=== PATIENT | male | born 1950 | race Caucasian/White ===

== ENCOUNTER 2021-03-01 10:01 | Inpatient (IN) | payer OTHER ==
--- NOTE | 2021-03-01 17:10 | R.PREADM ---
PRE-ADMISSION SCREENING FORM SCREENING DATE AND TIME 03/01/2021 11:00 (CDT) ANTICIPATED REHAB ADMISSION DATE 03/03/2021 REFERRING FACILITY [facility] REFERRAL DATE AND TIME 02/28/2021 11:03 (CDT) REFERRAL ROOM# 405 ACUTE ADMIT DATE 03/02/2021 Previous Rehabilitation(s): No. 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 Stas Escalante M.D. MR# [id number] NAME SOSA TEMPLETON ADDRESS [address] [place] [address] DATE OF 1950 AGE 71 SSN# [id number] GENDER male MARITAL STATUS PREF. LANGUAGE (IF NON-UGANDAN) [place]uan ADMIT FROM 02 - [facility] PRE-HOSPITAL LIVING SETTING 01 - Home (private home/apt. board/care, assisted living, intermediate, transitional living) HOME TYPE AND DETAILS Type of home: single family house # of levels in the residence: 1 # of steps within the residence: 0 # of steps to enter the residence: 0 PRE-HOSPITAL LIVING WITH Family/Relatives FAMILY SUPPORT Yes PRIMARY FAMILY CONTACT NAME ROBBIE TEMPLETON PRIMARY FAMILY CONTACT PHONE PRIMARY FAMILY CONTACT RELATIONSHIP PHONE PRIMARY FAMILY CONTACT ON ADM.? no IS PRIMARY FAMILY CONTACT AUTH. REP.? no 1ST EMERGENCY CONTACT ROBBIE TEMPLETON 1ST CONTACT PHONE 1ST CONTACT RELATIONSHIP PHONE 1ST CONTACT ON ADM. no IS 1ST CONTACT AUTH. REP.? no PHONE 2ND CONTACT ON ADM.? no PATIENT EMPLOYMENT STATUS Retired (for age) PATIENT EMPLOYER No Employer PAYOR INFORMATION: 1ST PAYOR NAME MEDICARE 1ST PAYOR PHONE 1ST PAYOR INJURY/ILLNESS DUE TO ACCIDENT? No ANOTHER LIBERTARIAN RESPONSIBLE? No PRIMARY REHAB/ACUTE DIAGNOSIS: POST COVID-19, Rotator cuff tear ONSET DATE 02/14/2021 REHAB IMPAIRMENT CATEGORY (JAIME): 15 Pulmonary does NOT meet 60% rule PRIMARY DIAGNOSIS-RELATED SURGERIES: N/A SUMMARY OF ACUTE HOSPITALIZATION: Pt. is a 71 yo Right-handed male. On 02/14/2021 he was admitted to [facility] with diagnosis POST COVID-19, Rotator cuff t ear. His impairment category is Pulmonary Disorders 10 - Other Pulmonary Disorders (10.9). Pre-morbidly, Pt. was independent/mod-I in Locomotion, Safety Awareness, Social Cognition, Balance, a nd Transfers Control; and he had good Transfers Control, Sphincter Control, Communication, and Self-C are. Currently, he has deficits of Locomotion, Balance, Transfers Control, Self-Care, and Endurance. Pt. is now referred to [facility] for acute in-patient rehabilitation in order to maximize patient's functional independence in activities of daily living, strength, ROM, and mobi lity. Patient has realistic goal of being discharged at assistance level 7-Ind to reside at Home with Fami ly/Relatives. PAST MEDICAL HISTORY ACUTE HYPOXIC RESPIRATORY FAILURE FAILURE HTN HLD CONSTIPATION PNA PAST SURGICAL HISTORY: APPENDECTOMY HERNIA REPAIR MEDICATION ALLERGIES: No Known Drug Allergies (NKDA) ENVIRONMENTAL ALLERGIES: - Substance Allergies None Known - Other Allergies None Known CODE STATUS: Full code WEIGHT/HEIGHT/BMI: WEIGHT 217 lbs HEIGHT 5' 11" BMI 30.3 DIET: - Diet Type Regular - Diet - Solid Texture Regular - Diet - Liquid Texture Regular - Tube Feed N/A REVIEW OF SYSTEMS: - Gen Alert and awake Lying in bed No apparent distress Oriented to: person, time, and place - Vital Signs Temperature: 97.2 F SBP/DBP: 137/86 Pulse: 50 Resp: 16 Vital signs stable, afebrile - CVS RRR VITAL SIGNS Temperature: 97.2 F SBP/DBP: 137/86 Pulse: 50 Resp: 16 Vital signs stable, afebrile MEDICATIONS/TREATMENT: Other- See attached MAR (Medication Administration Record). CURRENT SPHINCTER CONTROL: Pre-hospital bladder status: unspecified # of bladder accidents in the last 7 days prior to screenin Pre-hospital bowel status: unspecified # of bowel accidents in the last 7 days prior to screenin Last Bowel Movement Date: 03/01/2021 CURRENT LOCOMOTION STATUS: distance walked 15 feet WITH ROLLING WALKER DETAILED CURRENT FUNCTIONAL STATUS: - Bladder accident frequency: 7-Ind - No accidents in the past 7 days - Bowel accident frequency: 7-Ind - No accidents in the past 7 days - Walking score based on distance walked: 0(N/A) score based on distance walked: 1(<=50ft) - Wheelchair score based on distance traveled: 0(N/A) QI SCORES: - Self-Care A. Eating 03-Partial/moderate assistance B. Oral hygiene 03-Partial/moderate assistance C. Toileting hygiene 03-Partial/moderate assistance E. Shower/bathe self 03-Partial/moderate assistance F. Upper body dressing 03-Partial/moderate assistance G. Lower body dressing 03-Partial/moderate assistance H. Putting on/taking off footwear 88-Not attempted due to medical condition or safety concerns - Mobility A. Roll left and right 03-Partial/moderate assistance B. Sit to lying 03-Partial/moderate assistance C. Lying to sitting on side of bed 03-Partial/moderate assistance D. Sit to stand 03-Partial/moderate assistance E. Chair/zfd-ex-gbmpd transfer 03-Partial/moderate assistance F. Toilet transfer 03-Partial/moderate assistance G. Car transfer 88-Not attempted due to medical condition or safety concerns I. Walk 10 feet 03-Partial/moderate assistance J. Walk 50 feet with two turns 88-Not attempted due to medical condition or safety concerns K. Walk 150 feet 88-Not attempted due to medical condition or safety concerns L. Walking 10 feet on uneven surfaces 88-Not attempted due to medical condition or safety concerns M. 1 step (curb) 88-Not attempted due to medical condition or safety concerns N. 4 steps 88-Not attempted due to medical condition or safety concerns O. 12 steps 88-Not attempted due to medical condition or safety concerns P. Picking up object 88-Not attempted due to medical condition or safety concerns R. Wheel 50 feet with two turns 88-Not attempted due to medical condition or safety concerns S. Wheel 150 feet 88-Not attempted due to medical condition or safety concerns - Bladder and Bowel Bladder continence Bowel continence - Endurance Fair - Balance Poor - Safety Awareness Fair CURRENT FUNC. DEFICITS: Self-Care, Mobility, Endurance, Balance, and Safety Awareness CURRENT / PREVIOUS ASSISTIVE DEVICES: Rolling Walker HISTORY OF FALLS. HAS THE PATIENT HAD TWO OR MORE FALLS IN THE PAST YEAR OR ANY FALL WITH INJURY IN T HE PAST YEAR?: No PRIOR SURGERY. DID THE PATIENT HAVE MAJOR SURGERY DURING THE 100 DAYS PRIOR TO ADMISSION?: No THERAPY NOTES FROM ACUTE CARE: Attached. SPECIAL NEEDS: - Safety Concerns Skin breakdown precautions needed due to skin breakdown risk PATIENT NEEDS ACTIVE AND ONGOING THERAPEUTIC INTERVENTION OF MULTIPLE THERAPY DISCIPLINES, INCLUDING: - Dietary and Nutrition Adequate Nutrition. Nutritional Education. Nutritional Supplements. - Occupational Therapy Cognitive Retraining. Visual Perceptual Training. - Speech Therapy Cognitive Training. Expressive Language Skills. Memory Strategies. Receptive Language Skills. Speech Intelligibility Training. PATIENT NEEDS CLOSE MEDICAL SUPERVISION BY A REHABILITATION PHYSICIAN FOR: Coordination of Treatment Team PATIENT REQUIRES 24X7 REHAB NURSING FOR MEDICAL AND FUNCTIONAL MGT. OF THE FOLLOWING DEFICITS: Disease Management Medication Management Patient/Family Education Providing Safe Environment PATIENT REQUIRES INTENSIVE, COORDINATED INTERDISCIPLINARY APPROACH TO REHAB: Arranging Home Equipment/Services Discharge Planning Family Intervention/Training Health Sciences Program Coordinator/Case Management PATIENT REHAB POTENTIAL: Chasity TEMPLETON is able and expected to receive 3 hours of individualized therapy daily on at least 5 of every 7 days Chasity ROGERSALVAROMARILEE's prognosis for significant practical improvement within a reasonable period of time shanda ears Good Expected level of measurable improvement will be of a practical value to Chasity ROGERSALVAROMARILEE's functional ca pacity or adaptations to impairments Has a viable Discharge Plan Medically appropriate; condition is sufficiently stable to participate in intensive rehab program DISCHARGE PLAN: - Estimated Length of Stay (days) 11. - Consensus on plan Discharge plan has been discussed with primary caregiver. Patient/Family is in agreement with the jazzy n. Primary caregiver is in agreement with the plan. - Patient/Family Goals Return home independently. - Planned Living Setting Upon Discharge Home, to live with Family/Relatives. Transitional Living. RECOMMENDED CARE LEVEL: IRF RECOMMENDATION DETAILS: Recommended Admission to Comprehensive Rehabilitation Program to Increase Functional [place] SCREENER'S COMPLETENESS CONFIRMATION: - Screening Confirmation The patient data collection on this preadmission screening form is finished PHYSICIANS REVIEW AND ADMISSION DETERMINATION Admit - Based on my review of the Pre-Admission Screening results, in my medical judgment and experie nce, I concur with the findings and recommend admission to [facility], as this patient requires an IRF level of care. SIGNATURE PANEL: Mica Miner - [electronically] signed by Yuko Pierce on 03/01/2021 at 11:40 (CDT) Mica Miner - [electronically] signed by Thiago Leblanc PT on 03/01/2021 at 13:38 (CDT) Physician Reviewer - [electronically] signed by Dr. Stas Escalante M.D. on 03/01/2021 at 17:09 (CDT )
[2021-03-01] MEDS ORDERED: ACETAMINOPHEN 500 MG TAB PO PRN (19:59)
[2021-03-01] MEDS ORDERED: BENZONATATE 100 MG CAP PO PRN (20:03)
[2021-03-01] MEDS ORDERED: LACTULOSE 20 GM/30 ML UCUP PO PRN ×2 (20:08→21:20)
[2021-03-01] MEDS ORDERED: DOCUSATE NA 100 MG CAP PO PRN (20:09)
[2021-03-01] MEDS ORDERED: clonazePAM 0.5 MG TAB PO PRN (20:11)
[2021-03-01] MEDS ORDERED: ONDANSETRON 4 MG (ODT) TAB PO PRN (20:19)
[2021-03-01] MEDS: ATORVASTATIN 20 MG TAB PO SCH (20:43)
[2021-03-01] MEDS: ASCORBIC ACID 500 MG TABLET PO SCH (20:43)
[2021-03-02 00:38] LABS: Urine Appearance CLEAR (Clear); Urine Bilirubin NEGATIVE (Negative); Urine Blood NEGATIVE (Negative); Urine Color YELLOW (Yellow); Urine Glucose NEGATIVE (Negative); Urine Protein NEGATIVE (Negative); Urine Specific Gravity 1.025 (1.005-1.030); Urine pH 5.5 (5.0-7.0)
[2021-03-02 00:55] LABS: Urine Bacteria 20-50 /HPF (NONE SEEN); Urine Mucus 2+ /HPF (NONE SEEN); Urine RBC <5 /HPF (NONE SEEN)
[2021-03-02] MEDS ORDERED: METOPROLOL TAR 25 MG TAB PO SCH (06:00)
[2021-03-02 06:15] LABS: Absolute Lymphocytes (CBC) 1.7 K/uL (0.7-4.9); Basophils % 0.1 % (0-1.3); Hematocrit 47.1 % (39.6-49.0); Lymphocytes % 14.2 % (15.3-44.8); MPV 8.5 fL (7.6-11.3); RBC Red Blood Cell Count 5.26 M/uL (4.33-5.43)
[2021-03-02 06:20] LABS: Potassium 4.5 mmol/L (3.5-5.1); Sodium Level 138 mmol/L (136-145)
[2021-03-02 06:36] LABS: ALT/SGPT 48 U/L (12-78); AST/SGOT 17 U/L (15-37); Albumin 2.7 g/dL (3.4-5.0); Alkaline Phosphatase 77 U/L (45-117); BUN Blood Urea Nitrogen 30 mg/dL (7-18); Bicarbonate 29 mmol/L (21-32); Bilirubin Total 1.5 mg/dL (0.2-1.0); Glucose Level 108 mg/dL (74-106); Magnesium 2.2 mg/dL (1.8-2.4); Prealbumin 38.6 mg/dL (20-40); Protein, Total 5.7 g/dL (6.4-8.2)
[2021-03-02 06:38] LABS: C-Reactive Protein < 2.90 mg/L (<3.00)
[2021-03-02 06:50] LABS: Ferritin 3282.3 ng/mL (26-388)
[2021-03-02] MEDS ORDERED: BARICITINIB 2 MG TABLET PO SCH (08:00)
[2021-03-02] MEDS: ASPIRIN 81 MG CHEWABLE TABLET PO SCH (08:11)
[2021-03-02] MEDS: ASCORBIC ACID 500 MG TABLET PO SCH ×4 (08:11→19:27)
[2021-03-02] MEDS: THIAMINE HCL 100 MG TABLET PO SCH (08:12)
[2021-03-02] MEDS: FAMOTIDINE 20 MG TAB PO SCH ×2 (08:12→19:27)
[2021-03-02] MEDS: VITAMIN D 1000 UNIT TAB PO SCH (08:12)
[2021-03-02] MEDS: predniSONE 20 MG TAB PO SCH ×2 (08:12→19:27)
[2021-03-02] MEDS: FLUCONAZOLE 100 MG TAB PO SCH (08:13)
[2021-03-02] MEDS: ZINC SULFATE 220 MG CAP PO SCH (08:13)
--- NOTE | 2021-03-02 10:05 | P.RH.PN ---
Estimated Length of Stay: 14 Expected Discharge Date: 03/15/21 Vital Signs: Last Vital Signs Temp 97.0 F 03/02/21 07:04 Pulse 54 03/02/21 07:04 Resp 16 03/02/21 07:04 BP 129/86 03/02/21 07:04 Pulse Ox 93 03/02/21 07:04 Laboratory: Laboratory Last Values WBC 11.70 K/uL (4.3-10.9) H 03/02/21 05:49 RBC 5.26 M/uL (4.33-5.43) 03/02/21 05:49 Hgb 15.5 g/dL (13.6-17.9) 03/02/21 05:49 Hct 47.1 % (39.6-49.0) 03/02/21 05:49 MCV 89.5 fL (80-100) 03/02/21 05:49 MCH 29.5 pg (27.0-35.0) 03/02/21 05:49 MCHC 33.0 g/dL (32.0-36.0) 03/02/21 05:49 RDW 14.3 % (12.1-15.2) 03/02/21 05:49 Plt Count 158 K/uL (152-406) D 03/02/21 05:49 MPV 8.5 fL (7.6-11.3) 03/02/21 05:49 Neutrophils % 79.2 % (41.7-73.7) H 03/02/21 05:49 Lymphocytes % 14.2 % (15.3-44.8) L 03/02/21 05:49 Monocytes % 6.1 % (3.3-12.3) 03/02/21 05:49 Eosinophils % 0.4 % (0-4.4) 03/02/21 05:49 Basophils % 0.1 % (0-1.3) 03/02/21 05:49 Absolute Neutrophils 9.2 K/uL (1.8-8.0) H 03/02/21 05:49 Absolute Lymphocytes 1.7 K/uL (0.7-4.9) 03/02/21 05:49 Absolute Monocytes 0.7 K/uL (0.1-1.3) 03/02/21 05:49 Absolute Eosinophils 0.0 K/uL (0-0.5) 03/02/21 05:49 Absolute Basophils 0.0 K/uL (0-0.5) 03/02/21 05:49 Sodium Cancelled 03/02/21 06:00 Potassium Cancelled 03/02/21 06:00 Chloride Cancelled 03/02/21 06:00 Carbon Dioxide Cancelled 03/02/21 06:00 BUN Cancelled 03/02/21 06:00 Creatinine Cancelled 03/02/21 06:00 Estimated GFR Cancelled 03/02/21 06:00 Glucose Cancelled 03/02/21 06:00 Calcium Cancelled 03/02/21 06:00 Magnesium Cancelled 03/02/21 06:00 Ferritin 3282.3 ng/mL (26-388) H 03/02/21 05:53 Total Bilirubin 1.5 mg/dL (0.2-1.0) H 03/02/21 05:53 AST 17 U/L (15-37) 03/02/21 05:53 ALT 48 U/L (12-78) 03/02/21 05:53 Alkaline Phosphatase 77 U/L (45-117) 03/02/21 05:53 C-Reactive Protein < 2.90 mg/L (<3.00) 03/02/21 05:53 Serum Total Protein 5.7 g/dL (6.4-8.2) L 03/02/21 05:53 Albumin Cancelled 03/02/21 06:00 Globulin 3.0 g/dL (2.3-3.5) 03/02/21 05:53 Albumin/Globulin Ratio 0.9 (1.1-1.8) L 03/02/21 05:53 Prealbumin Cancelled 03/02/21 06:00 Urine Color Yellow (Yellow) 03/01/21 23:50 Urine Appearance Clear (Clear) 03/01/21 23:50 Urine pH 5.5 (5.0-7.0) 03/01/21 23:50 Ur Specific [place] 1.025 (1.005-1.030) 03/01/21 23:50 Glucose (UA)(Auto) Negative (Negative) 03/01/21 23:50 Urine Ketones Negative (Negative) 03/01/21 23:50 Urine Blood Negative (Negative) 03/01/21 23:50 Urine Nitrite Negative (Negative) 03/01/21 23:50 Urine Bilirubin Negative (Negative) 03/01/21 23:50 Urine Urobilinogen 1.0 mg/dL (0.2-1.0) 03/01/21 23:50 Ur Leukocyte Esterase Negative (Negative) 03/01/21 23:50 Urine RBC <5 /HPF (NONE SEEN) 03/01/21 23:50 Urine WBC <5 /HPF (<5) 03/01/21 23:50 Ur Squamous Epith Cells <5 /HPF (NONE SEEN) 03/01/21 23:50 Urine Bacteria 20-50 /HPF (NONE SEEN) H 03/01/21 23:50 Hyaline Casts 0-5 /LPF (NONE SEEN) 03/01/21 23:50 Urine Mucus 2+ /HPF (NONE SEEN) 03/01/21 23:50 Urine Culture Reflexed Not needed 03/01/21 23:50 Urine Total Protein Negative (Negative) 03/01/21 23:50 Weight: 217 lb Wound Present: No Closed Surgical Incision Present: No Negative Pressure Wound Therapy Present: No Physician Update: Contact guard with standing and walking. His O2 dropped to 74% on 3L of O2. He will increase incentive spirometry. He will be evaluated by occupational therapy. Labs reviewed and are stable. Summary: Patient's care plan and penitentiary goals have been reviewed and revised as necessary. Please see the Rehabilitation Signature page for all necessary signatures.
[2021-03-02] MEDS ORDERED: RIVAROXABAN 20 MG TABLET PO SCH (17:00)
--- NOTE | 2021-03-02 17:01 | R.HP ---
HISTORY AND PHYSICAL FACILITY: [facility] ENCOUNTER DATE AND TIME: 03/02/2021 16:52 (CDT) MR#: [id number] NAME SOSA TEMPLETON ADDRESS: [address] [place] [address] [place]: [place] [address] [address] PHONE: DATE OF : 1950 AGE: 71 SSN# [id number] GENDER: Male MARITAL STATUS PRE-HOSPITAL LIVING SETTING 01 - Home (private home/apt. board/care, assisted living, half-way, transitional living) PRE-HOSPITAL LIVING WITH Family/Relatives ENCOUNTER PHYSICIAN: Dr. Stas Escalante M.D. REFERRING DOCTOR: DATE OF ADMISSION: 03/01/2021 19:22 (CDT) REFERRING FACILITY [facility] HOME TYPE AND DETAILS: Type of home: single family house # of levels in the residence: 1 # of steps within the residence: 0 # of steps to enter the residence: 0 ONSET DATE: 02/14/2021 PRIMARY DIAGNOSIS-RELATED SURGERIES: N/A HISTORY OF PRESENT ILLNESS (HPI): Pt. is a 71 yo Right-handed male. On 02/14/2021 he was admitted to [facility] with diagnosis POST COVID-19, Rotator cuff t ear. His impairment category is Pulmonary Disorders 10 - Other Pulmonary Disorders (10.9). Pre-morbidly, Pt. was independent/mod-I in Locomotion, Safety Awareness, Social Cognition, Balance, a nd Transfers Control; and he had good Transfers Control, Sphincter Control, Communication, and Self-C are. Currently, he has deficits of Locomotion, Balance, Transfers Control, Self-Care, and Endurance. Pt. is now referred to [facility] for acute in-patient rehabilitation in order to maximize patient's functional independence in activities of daily living, strength, ROM, and mobi lity. Patient has realistic goal of being discharged at assistance level 7-Ind to reside at Home with Fami ly/Relatives. MEDICATION ALLERGIES: No Known Drug Allergies (NKDA) ENVIRONMENTAL ALLERGIES: - Substance Allergies None Known - Other Allergies None Known PAST MEDICAL HISTORY: ACUTE HYPOXIC RESPIRATORY FAILURE FAILURE HTN HLD CONSTIPATION PNA PAST SURGICAL HISTORY: APPENDECTOMY HERNIA REPAIR SOCIAL HISTORY: - Home Living Family/Relatives REVIEW OF SYSTEMS: - Gen No Chills Fatigue No Fever - Eyes No Double Vision No itchiness - ENMT No Difficulty Swallowing - CVS Chest Discomfort No Chest Pain No Fatigue No Weight Gain - Resp No Cough No Shortness of Breath - GI Continent No Abdominal Pain No Constipation No Diarrhea - Continent No Kidney Pain No Painful Urination No Urinary Urgency - MSK No Joint Pain Muscle Cramps Stiffness - Skin No Itching No Rash No Suspicious Lesions - Neuro Coordination Difficulty No Difficulty with Concentration No Memory Loss No Seizures Weakness - Psych No Anxiety No Depression No HIV Exposure No Persistent Infections No Seasonal Allergies - Endo No Cold/Heat Intolerance No Excessive Hunger No Excessive Thirst No Excessive Urination PHYSICAL EXAM - Gen Alert and awake Lying in bed No apparent distress Oriented to: person, time, and place - Skin No skin breakdown. Normacephalic - Eyes No abnormalities - ENMT No abnormalities - Neck No abnormalities - CVS RRR - Chest Mildly decreased breath sounds bilaterally. - Abd Soft - GI Non distended Deferred - No abnormalities - Ext No significant edema - MSK 4/5 weakness in proximal right upper extremity. - Neuro 4/5 strength right upper extremity - Psych No abnormalities VITAL SIGNS Temperature: 97.0 F SBP/DBP: 129/86 Pulse: 54 Resp: 16 NURSING: - Shower allowing shower ACTIVITIES OOB only with supervision QI SCORES: - Self-Care A. Eating 03-Partial/moderate assistance B. Oral hygiene 03-Partial/moderate assistance C. Toileting hygiene 03-Partial/moderate assistance E. Shower/bathe self 03-Partial/moderate assistance F. Upper body dressing 03-Partial/moderate assistance G. Lower body dressing 03-Partial/moderate assistance H. Putting on/taking off footwear 88-Not attempted due to medical condition or safety concerns - Mobility A. Roll left and right 03-Partial/moderate assistance B. Sit to lying 03-Partial/moderate assistance C. Lying to sitting on side of bed 03-Partial/moderate assistance D. Sit to stand 03-Partial/moderate assistance E. Chair/esl-bt-qlqon transfer 03-Partial/moderate assistance F. Toilet transfer 03-Partial/moderate assistance G. Car transfer 88-Not attempted due to medical condition or safety concerns I. Walk 10 feet 03-Partial/moderate assistance J. Walk 50 feet with two turns 88-Not attempted due to medical condition or safety concerns K. Walk 150 feet 88-Not attempted due to medical condition or safety concerns L. Walking 10 feet on uneven surfaces 88-Not attempted due to medical condition or safety concerns M. 1 step (curb) 88-Not attempted due to medical condition or safety concerns N. 4 steps 88-Not attempted due to medical condition or safety concerns O. 12 steps 88-Not attempted due to medical condition or safety concerns P. Picking up object 88-Not attempted due to medical condition or safety concerns R. Wheel 50 feet with two turns 88-Not attempted due to medical condition or safety concerns S. Wheel 150 feet 88-Not attempted due to medical condition or safety concerns - Bladder and Bowel Bladder continence Bowel continence - Endurance Fair - Balance Poor - Safety Awareness Fair CURRENT FUNC. DEFICITS: Self-Care, Mobility, Endurance, Balance, and Safety Awareness MEDICATIONS: - Other See attached MAR (Medication Administration Record) ASSESSMENT: Pt. is a 71 yo Right-handed male.On 02/14/2021 he was admitted to [facility] with diagno sis POST COVID-19, Rotator cuff tear.His impairment category is Pulmonary Disorders 10 - Other Pulmo nary Disorders (10.9).Pre-morbidly, Pt. was independent/mod-I in Locomotion, Safety Awareness, Social Cognition, Balance, and Transfers Control; and he had good Transfers Control, Sphincter Control, Com munication, and Self-Care.Currently, he has deficits of Locomotion, Balance, Transfers Control, Self- Care, and Endurance.Pt. is now referred to [facility] for acute in-patient julissa abilitation in order to maximize patient's functional independence in activities of daily living, str ength, ROM, and mobility.- Rehab Goal Patient has realistic goal of being discharged at assistance level 7-Ind to reside at Home with Fami ly/Relatives. - Physical Therapy Gait dysfunction - to improve, our physical therapists will perform initial evaluation of pt's status upon admission and devise an individualized program for Gait Training, and Wheel Chair mobility Inability to transfer - to improve, our physical therapists will perform initial evaluation of pt's s tatus upon admission and devise an individualized program for Bed mobility Need for home safety evaluation - to improve, our physical therapists will perform initial evaluation of pt's status upon admission and devise an individualized program for Home Evaluation Need in caregiver upon discharge - to improve, our physical therapists will perform initial evaluatio n of pt's status upon admission and devise an individualized program for Caregiver Training New precaution - to improve, our physical therapists will perform initial evaluation of pt's status u surendra admission and devise an individualized program for Patient precaution education Edema - to improve, our physical therapists will perform initial evaluation of pt's status upon admi ssion and devise an individualized program for Elevation Training, and Lymphedema Therapy Poor balance - to improve, our physical therapists will perform initial evaluation of pt's status upo n admission and devise an individualized program for Balance Training Poor endurance - to improve, our physical therapists will perform initial evaluation of pt's status u surendra admission and devise an individualized program for Endurance Training Weakness - to improve, our physical therapists will perform initial evaluation of pt's status upon ad mission and devise an individualized program for Aquatic Therapy, Neuromuscular Reeducation, and Stre ngthening Achieving independence - to improve, our physical therapists will perform initial evaluation of pt's status upon admission and devise an individualized program for Community Reintegration Activities - Occupational Therapy ADL deficits - to improve, our occupation therapists will perform initial evaluation of pt's status u surendra admission and devise an individualized program for Bathing, Bed mobility, Community Reintegration , Cooking, Dressing, Eating, Fine Motor Skills, Grooming, Homemaking, Kitchen Mobility, Laundry, Lynda ent Education, Safety Awareness, Splinting - Positioning, Transfers(Toilet, Tub, Shower), and Wheel C hair Management Need for palliative care nurse - to improve, our occupation therapists will perform initial evaluation of pt's s tatus upon admission and devise an individualized program for Caregiver Training Weakness - to improve, our occupation therapists will perform initial evaluation of pt's status upon admission and devise an individualized program for Aquatic Therapy, Balance, Endurance, UE ROM, and U E strengthening MEDICAL PLAN: - Diet Type Start Regular - Diet - Liquid Texture Start Regular - Tube Feed Start N/A - Other See attached MAR (Medication Administration Record) - Diet - Solid Texture Regular - Shower shower DISCHARGE PLAN: - Estimated Length of Stay (days) 11. - Consensus on plan Discharge plan has been discussed with primary caregiver. Patient/Family is in agreement with the jazzy n. Primary caregiver is in agreement with the plan. - Patient/Family Goals Return home independently. - Planned Living Setting Upon Discharge Home, to live with Family/Relatives. Transitional Living. SIGNATURE PANEL: (CDT)
--- NOTE | 2021-03-02 17:02 | PAPE ---
POST ADMISSION PHYSICIAN EVALUATION PATIENT: [facility] MR# [id number] REFERRING DOCTOR EVALUATION DATE AND TIME 03/02/2021 17:01 (CDT) NAME SOSA TEMPLETON DATE OF 1950 AGE 71 PHONE N# [id number] GENDER male EVALUATING PHYSICIAN Dr. Stas Escalante M.D. ADMISSION DIAGNOSIS: POST COVID-19, Rotator cuff tear ONSET DATE 02/14/2021 POST-ADMISSION FUNCTIONAL/MEDICAL STATUS: - Bladder Same accident frequency: 7-Ind - No accidents in the past 7 days - Bowel Same accident frequency: 7-Ind - No accidents in the past 7 days - Walking Same score based on distance walked: 0(N/A) Same score based on distance walked: 1(<=50ft) - Wheelchair Same score based on distance traveled: 0(N/A) STATUS CHANGE EVALUATION: No change in Functional or Medical Status is identified compared with Pre-Admission screening. PATIENT NEEDS CLOSE MEDICAL SUPERVISION BY A REHABILITATION PHYSICIAN FOR: Coordination of Treatment Team PATIENT REQUIRES 24X7 REHAB NURSING FOR MEDICAL AND FUNCTIONAL MGT. OF THE FOLLOWING DEFICITS: Disease Management Medication Management Patient/Family Education Providing Safe Environment PATIENT REQUIRES INTENSIVE, COORDINATED INTERDISCIPLINARY APPROACH TO REHAB: Arranging Home Equipment/Services Discharge Planning Family Intervention/Training Kiln Placer/Case Management LIST OF IDENTIFIED AND POTENTIAL PROBLEMS: Alteration in leisure activities Bladder, Incontinence Bowel, Incontinence Infection, Actual or Potential Mobility Impaired Pain, Alteration in Comfort Self Care Deficit Skin Integrity, Actual or Potential Urinary Tract Infection (UTI), Actual or Potential PATIENT COULD BE AT RISK FOR COMPLICATIONS FROM ADVERSE MEDICAL CONDITIONS DUE TO HIS/HER COMORBIDITI ES AND THE RIGORS OF THE INTENSIVE REHABILLITATION PROGRAM. METHODS OR INTERVENTIONS TO AVOID COMPLIC ATIONS INCLUDE: - Infection Clinical staff to assess and manage the signs and symptoms of infection including fever, redness, war mth, etc. - Urinary Tract Infection - Falls Patient will be evaluated for Fall Precautions and will be placed on Fall Precautions as indicated pe r protocol. - Skin Breakdown Nursing will assess skin daily using assessment tool and will place on Skin Breakdown Precautions as indicated per protocol. - Pain Clinical staff may employ non-medication methods such as massage, distraction, decrease stimulus, etc . as needed. Clinical staff will assess patient's pain level every shift per protocol to assess and e nsure pain management effectiveness. Medications will be given and the pain level re-assessed. PRELIMINARY PLAN OF CARE: - Physical Therapy Patient needs Physical Therapy for a daily minimum of 1.5 hours at least 5 out of 7 days, to improve: Mobility, Strengthening, Transfers, Stretching, ROM, Endurance, Ability to manage stairs, Gait, and Balance. - Speech Therapy Patient needs Speech Therapy for a daily minimum of 0.5 hours at least 5 out of 7 days, to improve: S wallowing, Cognition, Language Skills, and Compensatory Strategies. - Rehabilitation Nursing Patient requires 24x7 Rehabilitation Nursing for: Pain Issues, Identifying and preventing risk factor s, Monitoring and reporting current medical conditions, Assisting with ambulation and transfer, Abdoul ting with all ADL-s, Teaching patients about disease process and medications, Family teaching, Provid ing safe environment, Bowel and Bladder Issues, Skin Integrity, and Medication Management. Patient needs Kiln Placer and/or Case Management for: Discharge Planning, Arranging Home Equipmen t or Services, and Family Interventions. - Dietary and Nutrition Services Patient needs Dietary and Nutrition Services for: Adequate Nutrition, Nutritional Supplements, and Nu tritional Education. - Occupational Therapy Patient needs Occupational Therapy for a daily minimum of 1.5 hours at least 5 out of 7 days, to impr ove Activities of Daily Living, including: Eating, Grooming, Bathing, Dressing, Toileting, Toilet Tra nsfers, Community Reintegration, Higher functional activities, Adaptive Equipment, Splinting, Househo ld Tasks, and Other activities as determined. QI SCORES: - Self-Care A. Eating 03-Partial/moderate assistance B. Oral hygiene 03-Partial/moderate assistance C. Toileting hygiene 03-Partial/moderate assistance E. Shower/bathe self 03-Partial/moderate assistance F. Upper body dressing 03-Partial/moderate assistance G. Lower body dressing 03-Partial/moderate assistance H. Putting on/taking off footwear 88-Not attempted due to medical condition or safety concerns - Mobility A. Roll left and right 03-Partial/moderate assistance B. Sit to lying 03-Partial/moderate assistance C. Lying to sitting on side of bed 03-Partial/moderate assistance D. Sit to stand 03-Partial/moderate assistance E. Chair/ggt-he-lhxht transfer 03-Partial/moderate assistance F. Toilet transfer 03-Partial/moderate assistance G. Car transfer 88-Not attempted due to medical condition or safety concerns I. Walk 10 feet 03-Partial/moderate assistance J. Walk 50 feet with two turns 88-Not attempted due to medical condition or safety concerns K. Walk 150 feet 88-Not attempted due to medical condition or safety concerns L. Walking 10 feet on uneven surfaces 88-Not attempted due to medical condition or safety concerns M. 1 step (curb) 88-Not attempted due to medical condition or safety concerns N. 4 steps 88-Not attempted due to medical condition or safety concerns O. 12 steps 88-Not attempted due to medical condition or safety concerns P. Picking up object 88-Not attempted due to medical condition or safety concerns R. Wheel 50 feet with two turns 88-Not attempted due to medical condition or safety concerns S. Wheel 150 feet 88-Not attempted due to medical condition or safety concerns - Bladder and Bowel Bladder continence Bowel continence - Endurance Fair - Balance Poor - Safety Awareness Fair POTENTIAL FUNCTIONAL GOALS FOR PATIENT TO ACHIEVE BY DISCHARGE: - Safety Precaution Patient will remain free from falls or injury at time of discharge. - Bed Mobility Patient will perform bed mobility at 4-Naila level of assistance. - Transfers Patient will complete transfers from bed to chair at 4-Naila level of assistance. - Mobility Patient will ambulate 150 ft with 4-Naila level of assistance with RW. PATIENT REHAB POTENTIAL Chasity TEMPLETON is able and expected to receive 3 hours of individualized therapy daily on at least 5 of every 7 days Chasity TEMPLETON's prognosis for significant practical improvement within a reasonable period of time shanda ears Good Expected level of measurable improvement will be of a practical value to Chasity TEMPLETON's functional ca pacity or adaptations to impairments Has a viable Discharge Plan Medically appropriate; condition is sufficiently stable to participate in intensive rehab program DISCHARGE PLAN: - Estimated Length of Stay (days) 11. - Consensus on plan Discharge plan has been discussed with primary caregiver. Patient/Family is in agreement with the jazzy n. Primary caregiver is in agreement with the plan. - Patient/Family Goals Return home independently. - Planned Living Setting Upon Discharge Home, to live with Family/Relatives. Transitional Living. CONCLUSION ON REHABILITATION NECESSITY: I have evaluated patient's pre-admission functional status and, comparing it to the patient's post-ad mission functional status now, I conclude that the pre-admission assessment was accurate. Patient's c ondition on admission supports the medical necessity of admission to IRF. It is safe to proceed with patient's therapy program. SIGNATURE PANEL: (CDT)
[2021-03-02] MEDS: METOPROLOL TAR 25 MG TAB PO SCH (17:12)
[2021-03-02] MEDS: RIVAROXABAN 10 MG TABLET PO SCH (17:13)
[2021-03-02] MEDS: CRANBERRY FRUIT EXTRACT 200 MG CAP PO SCH (19:26)
[2021-03-02] MEDS: ATORVASTATIN 20 MG TAB PO SCH (19:27)
[2021-03-03] MEDS: METOPROLOL TAR 25 MG TAB PO SCH ×2 (05:33→17:25)
[2021-03-03] MEDS ORDERED: RIVAROXABAN 10 MG TABLET PO SCH (08:00)
[2021-03-03] MEDS: ASCORBIC ACID 500 MG TABLET PO SCH ×4 (08:01→20:20)
[2021-03-03] MEDS: THIAMINE HCL 100 MG TABLET PO SCH (08:01)
[2021-03-03] MEDS: VITAMIN D 1000 UNIT TAB PO SCH (08:02)
[2021-03-03] MEDS: ZINC SULFATE 220 MG CAP PO SCH (08:02)
[2021-03-03] MEDS: predniSONE 20 MG TAB PO SCH ×2 (08:03→20:23)
[2021-03-03] MEDS: ASPIRIN 81 MG CHEWABLE TABLET PO SCH (08:03)
[2021-03-03] MEDS: FAMOTIDINE 20 MG TAB PO SCH ×2 (08:03→20:21)
[2021-03-03] MEDS: CRANBERRY FRUIT EXTRACT 200 MG CAP PO SCH ×2 (08:03→20:20)
[2021-03-03] MEDS: FLUCONAZOLE 100 MG TAB PO SCH (08:04)
[2021-03-03] MEDS: RIVAROXABAN 10 MG TABLET PO SCH (17:26)
[2021-03-03] MEDS: DIVALPROEX DR 250 MG TAB PO SCH (20:22)
[2021-03-03] MEDS: ATORVASTATIN 20 MG TAB PO SCH (20:23)
[2021-03-04] MEDS: METOPROLOL TAR 25 MG TAB PO SCH ×2 (05:04→17:02)
[2021-03-04] MEDS: CRANBERRY FRUIT EXTRACT 200 MG CAP PO SCH ×2 (08:14→20:10)
[2021-03-04] MEDS: THIAMINE HCL 100 MG TABLET PO SCH (08:14)
[2021-03-04] MEDS: DOCUSATE NA 100 MG CAP PO SCH (08:15)
[2021-03-04] MEDS: FLUCONAZOLE 100 MG TAB PO SCH (08:15)
[2021-03-04] MEDS: VITAMIN D 1000 UNIT TAB PO SCH (08:15)
[2021-03-04] MEDS: ASPIRIN 81 MG CHEWABLE TABLET PO SCH (08:16)
[2021-03-04] MEDS: predniSONE 20 MG TAB PO SCH ×2 (08:16→20:10)
[2021-03-04] MEDS: ASCORBIC ACID 500 MG TABLET PO SCH ×4 (08:16→20:11)
[2021-03-04] MEDS: FAMOTIDINE 20 MG TAB PO SCH ×2 (08:16→20:10)
[2021-03-04] MEDS: ZINC SULFATE 220 MG CAP PO SCH (08:16)
--- NOTE | 2021-03-04 10:44 | EKG ---
Test Date: 2021-03-02 Test Time: 12:51:45 Transcriber: MATT MEASUREMENT RESULTS: Intervals: Rate: 65 NC: 138 QRSD: 86 QT: 386 QTc: 401 [place]: P: 51 NC: 138 QRS: 27 T: 61 INTERPRETIVE STATEMENTS: Normal sinus rhythm ST abnormality, possible digitalis effect Abnormal ECG Compared to ECG 02/13/2021 23:45:35 ST (T wave) deviation now present Electronically Signed On 03-04-21 10:40:17 CDT by Devon Faulkner
[2021-03-04] MEDS: RIVAROXABAN 10 MG TABLET PO SCH (17:02)
[2021-03-04] MEDS: DIVALPROEX DR 250 MG TAB PO SCH (20:10)
[2021-03-04] MEDS: ATORVASTATIN 20 MG TAB PO SCH (20:10)
[2021-03-05] MEDS: METOPROLOL TAR 25 MG TAB PO SCH ×2 (05:06→17:22)
[2021-03-05] MEDS: predniSONE 20 MG TAB PO SCH ×2 (08:21→20:09)
[2021-03-05] MEDS: DOCUSATE NA 100 MG CAP PO SCH (08:21)
[2021-03-05] MEDS: VITAMIN D 1000 UNIT TAB PO SCH (08:21)
[2021-03-05] MEDS: THIAMINE HCL 100 MG TABLET PO SCH (08:22)
[2021-03-05] MEDS: ASPIRIN 81 MG CHEWABLE TABLET PO SCH (08:23)
[2021-03-05] MEDS: FAMOTIDINE 20 MG TAB PO SCH ×2 (08:23→20:09)
[2021-03-05] MEDS: ZINC SULFATE 220 MG CAP PO SCH (08:23)
[2021-03-05] MEDS: CRANBERRY FRUIT EXTRACT 200 MG CAP PO SCH ×2 (08:23→20:08)
[2021-03-05] MEDS: FLUCONAZOLE 100 MG TAB PO SCH (08:24)
[2021-03-05] MEDS: ASCORBIC ACID 500 MG TABLET PO SCH ×4 (08:24→20:08)
[2021-03-05] MEDS: RIVAROXABAN 10 MG TABLET PO SCH (17:22)
[2021-03-05] MEDS: DIVALPROEX DR 250 MG TAB PO SCH (20:09)
[2021-03-05] MEDS: ATORVASTATIN 20 MG TAB PO SCH (20:09)
--- NOTE | 2021-03-05 22:35 | R.PN ---
PROGRESS NOTES ENCOUNTER DATE AND TIME: 03/05/2021 17:45 (CDT) NAME SOSA TEMPLETON DATE OF : 1950 DATE OF ADMISSION: 03/01/2021 19:22 (CDT) POST COVID-19, Rotator cuff tearCHIEF COMPLAINT: Post-covid syndrome, debility, rotator cuff tear SUBJECTIVE: Pt denied any depression. Pt denied any Shortness of Breath. He denies significant pain, insomnia, constipation or shortness of breath while on 2-3 Lo fO2 via barbie al cannula. Blood work reviewed and is stable. He did well with physical and occupational therapy exercised today. VITAL SIGNS Temperature: 97.2 F SBP/DBP: 125/78 Pulse: 57 Resp: 15 MEDICATION ALLERGIES: No Known Drug Allergies (NKDA) ENVIRONMENTAL ALLERGIES: - Substance Allergies None Known - Other Allergies None Known NURSING: - Shower allowing shower ACTIVITIES OOB only with supervision THERAPIES: - Dietary and Nutrition Adequate Nutrition. Nutritional Education. Nutritional Supplements. - Occupational Therapy Cognitive Retraining. Visual Perceptual Training. - Speech Therapy Cognitive Training. Expressive Language Skills. Memory Strategies. Receptive Language Skills. Speech Intelligibility Training. PHYSICAL EXAM - Gen Alert and awake Lying in bed No apparent distress Oriented to: person, time, and place - Skin No skin breakdown. Normacephalic - Eyes No abnormalities - ENMT No abnormalities - Neck No abnormalities - CVS RRR - Chest Mildly decreased breath sounds bilaterally. - Abd Soft - GI Non distended Deferred - No abnormalities - Ext No significant edema - MSK 4/5 weakness in proximal right upper extremity. - Neuro 4/5 strength right upper extremity - Psych No abnormalities ASSESSMENT: Pt. is a 71 yo Right-handed male.On 02/14/2021 he was admitted to [facility] with diagno sis POST COVID-19, Rotator cuff tear.His impairment category is Pulmonary Disorders 10 - Other Pulmo nary Disorders (10.9).Pre-morbidly, Pt. was independent/mod-I in Locomotion, Safety Awareness, Social Cognition, Balance, and Transfers Control; and he had good Transfers Control, Sphincter Control, Com munication, and Self-Care.Currently, he has deficits of Locomotion, Balance, Transfers Control, Self- Care, and Endurance.Pt. is now [facility] to [facility] for acute in-patient julissa abilitation in order to maximize patient's functional independence in activities of daily living, str ength, ROM, and mobility.- Rehab Goal Patient has realistic goal of being discharged at assistance level 7-Ind to reside at Home with Fami ly/Relatives. MDM/PLAN: - Physical Therapy Gait dysfunction - to improve, our physical therapists will perform initial evaluation of pt's statu s upon admission and devise an individualized program for Gait Training, and Wheel Chair mobility Inability to transfer - to improve, our physical therapists will perform initial evaluation of pt's status upon admission and devise an individualized program for Bed mobility Need for home safety evaluation - to improve, our physical therapists will perform initial evaluatio n of pt's status upon admission and devise an individualized program for Home Evaluation Need in caregiver upon discharge - to improve, our physical therapists will perform initial evaluati on of pt's status upon admission and devise an individualized program for Caregiver Training New precaution - to improve, our physical therapists will perform initial evaluation of pt's status upon admission and devise an individualized program for Patient precaution education Edema - to improve, our physical therapists will perform initial evaluation of pt's status upon admis olivia and devise an individualized program for Elevation Training, and Lymphedema Therapy Poor balance - to improve, our physical therapists will perform initial evaluation of pt's status up on admission and devise an individualized program for Balance Training Poor endurance - to improve, our physical therapists will perform initial evaluation of pt's status upon admission and devise an individualized program for Endurance Training Weakness - to improve, our physical therapists will perform initial evaluation of pt's status upon a dmission and devise an individualized program for Aquatic Therapy, Neuromuscular Reeducation, and Str engthening Achieving independence - to improve, our physical therapists will perform initial evaluation of pt's status upon admission and devise an individualized program for Community Reintegration Activities - Occupational Therapy ADL deficits - to improve, our occupation therapists will perform initial evaluation of pt's status upon admission and devise an individualized program for Bathing, Bed mobility, Community Reintegratio n, Cooking, Dressing, Eating, Fine Motor Skills, Grooming, Homemaking, Kitchen Mobility, Laundry, Pat ient Education, Safety Awareness, Splinting - Positioning, Transfers(Toilet, Tub, Shower), and Wheel Chair Management Need for career manager - to improve, our occupation therapists will perform initial evaluation of pt's status upon admission and devise an individualized program for Caregiver Training Weakness - to improve, our occupation therapists will perform initial evaluation of pt's status upon admission and devise an individualized program for Aquatic Therapy, Balance, Endurance, UE ROM, and UE strengthening - Other See attached MAR (Medication Administration Record) - Diet Type Continue Regular - Diet - Liquid Texture Continue Regular - Tube Feed Continue N/A - Diet - Solid Texture Continue Regular - Shower allowing shower FUNCTIONAL STATUS: UPDATED AT WEEKLY TEAM CONFERENCE - Bladder Same accident frequency: 7-Ind - No accidents in the past 7 days - Bowel Same accident frequency: 7-Ind - No accidents in the past 7 days - Walking Same score based on distance walked: 0(N/A) Same score based on distance walked: 1(<=50ft) - Wheelchair Same score based on distance traveled: 0(N/A) FUNCTIONAL STATUS: - Self-Care A. Eating Ind B. Grooming Sea C. Bathing modA D. Dressing - Upper Naila E. Dressing - Lower modA F. Toileting Naila - Sphincter Control G. Bladder control Sea H. Bowel control Sea - Transfers Control I. Bed/Chair/Wheelchair Naila J. Toilet sup K. Tub/Shower modA - Locomotion L. Walk/Wheelchair (B) Sea M. Stairs Sea - Communication N. Comprehension (B) sup O. Expression (B) sup - Social Cognition P. Social Interaction Sea Q. Problem Solving sup R. Memory sup - Endurance Fair - Balance Fair - Safety Awareness Fair QI SCORES: - Self-Care A. Eating 03-Partial/moderate assistance B. Oral hygiene 03-Partial/moderate assistance C. Toileting hygiene 03-Partial/moderate assistance E. Shower/bathe self 03-Partial/moderate assistance F. Upper body dressing 03-Partial/moderate assistance G. Lower body dressing 03-Partial/moderate assistance H. Putting on/taking off footwear 88-Not attempted due to medical condition or safety concerns - Mobility A. Roll left and right 03-Partial/moderate assistance B. Sit to lying 03-Partial/moderate assistance C. Lying to sitting on side of bed 03-Partial/moderate assistance D. Sit to stand 03-Partial/moderate assistance E. Chair/vpx-pz-rrxty transfer 03-Partial/moderate assistance F. Toilet transfer 03-Partial/moderate assistance G. Car transfer 88-Not attempted due to medical condition or safety concerns I. Walk 10 feet 03-Partial/moderate assistance J. Walk 50 feet with two turns 88-Not attempted due to medical condition or safety concerns K. Walk 150 feet 88-Not attempted due to medical condition or safety concerns L. Walking 10 feet on uneven surfaces 88-Not attempted due to medical condition or safety concerns M. 1 step (curb) 88-Not attempted due to medical condition or safety concerns N. 4 steps 88-Not attempted due to medical condition or safety concerns O. 12 steps 88-Not attempted due to medical condition or safety concerns P. Picking up object 88-Not attempted due to medical condition or safety concerns R. Wheel 50 feet with two turns 88-Not attempted due to medical condition or safety concerns S. Wheel 150 feet 88-Not attempted due to medical condition or safety concerns - Bladder and Bowel Bladder continence Bowel continence - Endurance Fair - Balance Poor - Safety Awareness Fair CURRENT [facility]. DEFICITS: Self-Care, Mobility, Endurance, Balance, and Safety Awareness SIGNATURE PANEL: (CDT)
[2021-03-06] MEDS: METOPROLOL TAR 25 MG TAB PO SCH ×2 (05:07→17:45)
[2021-03-06] MEDS: ZINC SULFATE 220 MG CAP PO SCH (08:09)
[2021-03-06] MEDS: DOCUSATE NA 100 MG CAP PO SCH (08:09)
[2021-03-06] MEDS: FAMOTIDINE 20 MG TAB PO SCH ×2 (08:09→19:47)
[2021-03-06] MEDS: ASPIRIN 81 MG CHEWABLE TABLET PO SCH (08:09)
[2021-03-06] MEDS: THIAMINE HCL 100 MG TABLET PO SCH (08:10)
[2021-03-06] MEDS: CRANBERRY FRUIT EXTRACT 200 MG CAP PO SCH ×2 (08:10→19:46)
[2021-03-06] MEDS: VITAMIN D 1000 UNIT TAB PO SCH (08:10)
[2021-03-06] MEDS: ASCORBIC ACID 500 MG TABLET PO SCH ×4 (08:10→19:47)
[2021-03-06] MEDS: FLUCONAZOLE 100 MG TAB PO SCH (08:11)
[2021-03-06] MEDS: predniSONE 20 MG TAB PO SCH ×2 (08:11→19:47)
--- NOTE | 2021-03-06 17:02 | R.PN ---
PROGRESS NOTES ENCOUNTER DATE AND TIME: 03/06/2021 16:58 (CDT) NAME SOSA TEMPLETON DATE OF : 1950 DATE OF ADMISSION: 03/01/2021 19:22 (CDT) POST COVID-19, Rotator cuff tearCHIEF COMPLAINT: Post-covid syndrome, debility, rotator cuff tear SUBJECTIVE: Pt denied any depression. Pt denied any Shortness of Breath. He denies significant pain, insomnia, constipation or shortness of breath while on 2-3 Lo fO2 via barbie al cannula. Blood work reviewed and is stable. He did well with physical and occupational therapy exercised today. CBC with diff shows mildly elevated WBC of 11.7, Ca is mildly low at 7.8. Ambulated 1500' with rolling walker and 2 L of O2. Mobilized wheelchair 250'. VITAL SIGNS Temperature: 97.6 F SBP/DBP: 126/83 Pulse: 63 Resp: 16 MEDICATION ALLERGIES: No Known Drug Allergies (NKDA) ENVIRONMENTAL ALLERGIES: - Substance Allergies None Known - Other Allergies None Known NURSING: - Shower allowing shower ACTIVITIES OOB only with supervision THERAPIES: - Dietary and Nutrition Adequate Nutrition. Nutritional Education. Nutritional Supplements. - Occupational Therapy Cognitive Retraining. Visual Perceptual Training. - Speech Therapy Cognitive Training. Expressive Language Skills. Memory Strategies. Receptive Language Skills. Speech Intelligibility Training. PHYSICAL EXAM - Gen Alert and awake Lying in bed No apparent distress Oriented to: person, time, and place - Skin No skin breakdown. Normacephalic - Eyes No abnormalities - ENMT No abnormalities - Neck No abnormalities - CVS RRR - Chest Mildly decreased breath sounds bilaterally. - Abd Soft - GI Non distended Deferred - No abnormalities - Ext No significant edema - MSK 4/5 weakness in proximal right upper extremity. - Neuro 4/5 strength right upper extremity - Psych No abnormalities ASSESSMENT: Pt. is a 71 yo Right-handed male.On 02/14/2021 he was admitted to [facility] with diagno sis POST COVID-19, Rotator cuff tear.His impairment category is Pulmonary Disorders 10 - Other Pulmo nary Disorders (10.9).Pre-morbidly, Pt. was independent/mod-I in Locomotion, Safety Awareness, Social Cognition, Balance, and Transfers Control; and he had good Transfers Control, Sphincter Control, Com munication, and Self-Care.Currently, he has deficits of Locomotion, Balance, Transfers Control, Self- Care, and Endurance.Pt. is now referred to [facility] for acute in-patient julissa abilitation in order to maximize patient's functional independence in activities of daily living, str ength, ROM, and mobility.- Rehab Goal Patient has realistic goal of being discharged at assistance level 7-Ind to reside at Home with Fami ly/Relatives. MDM/PLAN: - Physical Therapy Gait dysfunction - to improve, our physical therapists will perform initial evaluation of pt's statu s upon admission and devise an individualized program for Gait Training, and Wheel Chair mobility Inability to transfer - to improve, our physical therapists will perform initial evaluation of pt's status upon admission and devise an individualized program for Bed mobility Need for home safety evaluation - to improve, our physical therapists will perform initial evaluatio n of pt's status upon admission and devise an individualized program for Home Evaluation Need in caregiver upon discharge - to improve, our physical therapists will perform initial evaluati on of pt's status upon admission and devise an individualized program for Caregiver Training New precaution - to improve, our physical therapists will perform initial evaluation of pt's status upon admission and devise an individualized program for Patient precaution education Edema - to improve, our physical therapists will perform initial evaluation of pt's status upon admi ssion and devise an individualized program for Elevation Training, and Lymphedema Therapy Poor balance - to improve, our physical therapists will perform initial evaluation of pt's status up on admission and devise an individualized program for Balance Training Poor endurance - to improve, our physical therapists will perform initial evaluation of pt's status upon admission and devise an individualized program for Endurance Training Weakness - to improve, our physical therapists will perform initial evaluation of pt's status upon a dmission and devise an individualized program for Aquatic Therapy, Neuromuscular Reeducation, and Str engthening Achieving independence - to improve, our physical therapists will perform initial evaluation of pt's status upon admission and devise an individualized program for Community Reintegration Activities - Occupational Therapy ADL deficits - to improve, our occupation therapists will perform initial evaluation of pt's status upon admission and devise an individualized program for Bathing, Bed mobility, Community Reintegratio n, Cooking, Dressing, Eating, Fine Motor Skills, Grooming, Homemaking, Kitchen Mobility, Laundry, Pat ient Education, Safety Awareness, Splinting - Positioning, Transfers(Toilet, Tub, Shower), and Wheel Chair Management Need for day care aide - to improve, our occupation therapists will perform initial evaluation of pt's status upon admission and devise an individualized program for Caregiver Training Weakness - to improve, our occupation therapists will perform initial evaluation of pt's status upon admission and devise an individualized program for Aquatic Therapy, Balance, Endurance, UE ROM, and UE strengthening - Other See attached MAR (Medication Administration Record) - Diet Type Continue Regular - Diet - Liquid Texture Continue Regular - Tube Feed Continue N/A - Diet - Solid Texture Continue Regular - Shower allowing shower FUNCTIONAL STATUS: UPDATED AT WEEKLY TEAM CONFERENCE - Bladder Same accident frequency: 7-Ind - No accidents in the past 7 days - Bowel Same accident frequency: 7-Ind - No accidents in the past 7 days - Walking Same score based on distance walked: 0(N/A) Same score based on distance walked: 1(<=50ft) - Wheelchair Same score based on distance traveled: 0(N/A) FUNCTIONAL STATUS: - Self-Care A. Eating Ind B. Grooming Sea C. Bathing modA D. Dressing - Upper Naila E. Dressing - Lower modA F. Toileting Naila - Sphincter Control G. Bladder control Sea H. Bowel control Sea - Transfers Control I. Bed/Chair/Wheelchair Naila J. Toilet sup K. Tub/Shower modA - Locomotion L. Walk/Wheelchair (B) Sea M. Stairs Sea - Communication N. Comprehension (B) sup O. Expression (B) sup - Social Cognition P. Social Interaction Sea Q. Problem Solving sup R. Memory sup - Endurance Fair - Balance Fair - Safety Awareness Fair QI SCORES: - Self-Care A. Eating 03-Partial/moderate assistance B. Oral hygiene 03-Partial/moderate assistance C. Toileting hygiene 03-Partial/moderate assistance E. Shower/bathe self 03-Partial/moderate assistance F. Upper body dressing 03-Partial/moderate assistance G. Lower body dressing 03-Partial/moderate assistance H. Putting on/taking off footwear 88-Not attempted due to medical condition or safety concerns - Mobility A. Roll left and right 03-Partial/moderate assistance B. Sit to lying 03-Partial/moderate assistance C. Lying to sitting on side of bed 03-Partial/moderate assistance D. Sit to stand 03-Partial/moderate assistance E. Chair/tod-bq-ayqdr transfer 03-Partial/moderate assistance F. Toilet transfer 03-Partial/moderate assistance G. Car transfer 88-Not attempted due to medical condition or safety concerns I. Walk 10 feet 03-Partial/moderate assistance J. Walk 50 feet with two turns 88-Not attempted due to medical condition or safety concerns K. Walk 150 feet 88-Not attempted due to medical condition or safety concerns L. Walking 10 feet on uneven surfaces 88-Not attempted due to medical condition or safety concerns M. 1 step (curb) 88-Not attempted due to medical condition or safety concerns N. 4 steps 88-Not attempted due to medical condition or safety concerns O. 12 steps 88-Not attempted due to medical condition or safety concerns P. Picking up object 88-Not attempted due to medical condition or safety concerns R. Wheel 50 feet with two turns 88-Not attempted due to medical condition or safety concerns S. Wheel 150 feet 88-Not attempted due to medical condition or safety concerns - Bladder and Bowel Bladder continence Bowel continence - Endurance Fair - Balance Poor - Safety Awareness Fair [facility] DEFICITS: Self-Care, Mobility, Endurance, Balance, and Safety Awareness SIGNATURE PANEL: (CDT)
[2021-03-06] MEDS: RIVAROXABAN 10 MG TABLET PO SCH (17:46)
[2021-03-06] MEDS: DIVALPROEX DR 250 MG TAB PO SCH (19:46)
[2021-03-06] MEDS: ATORVASTATIN 20 MG TAB PO SCH (19:46)
[2021-03-07] MEDS: METOPROLOL TAR 25 MG TAB PO SCH ×2 (05:09→16:48)
[2021-03-07] MEDS: predniSONE 20 MG TAB PO SCH ×2 (07:53→19:30)
[2021-03-07] MEDS: VITAMIN D 1000 UNIT TAB PO SCH (07:53)
[2021-03-07] MEDS: DOCUSATE NA 100 MG CAP PO SCH (07:53)
[2021-03-07] MEDS: ASPIRIN 81 MG CHEWABLE TABLET PO SCH (07:53)
[2021-03-07] MEDS: CRANBERRY FRUIT EXTRACT 200 MG CAP PO SCH ×2 (07:53→19:30)
[2021-03-07] MEDS: ZINC SULFATE 220 MG CAP PO SCH (07:53)
[2021-03-07] MEDS: FAMOTIDINE 20 MG TAB PO SCH ×2 (07:54→19:30)
[2021-03-07] MEDS: ASCORBIC ACID 500 MG TABLET PO SCH ×4 (07:54→19:31)
[2021-03-07] MEDS: THIAMINE HCL 100 MG TABLET PO SCH (07:54)
[2021-03-07] MEDS: RIVAROXABAN 10 MG TABLET PO SCH (16:48)
--- NOTE | 2021-03-07 19:25 | R.PN ---
PROGRESS NOTES ENCOUNTER DATE AND TIME: 03/07/2021 19:22 (CDT) NAME SOSA TEMPLETON DATE OF : 1950 DATE OF ADMISSION: 03/01/2021 19:22 (CDT) POST COVID-19, Rotator cuff tearCHIEF COMPLAINT: Post-covid syndrome, debility, rotator cuff tear SUBJECTIVE: Pt denied any depression. Pt denied any Shortness of Breath. He denies significant pain, insomnia, constipation or shortness of breath while on 2-3 Lo fO2 via barbie al cannula. Blood work reviewed and is stable. CBC with diff shows mildly elevated WBC of 11.7, Ca is mildly low at 7.8. Ambulated 230' with rolling walker and 2 L of O2. Sats dropped to 82 but improved after O2 was increa sed up to 4.5L. VITAL SIGNS Temperature: 97.1 F SBP/DBP: 125/87 Pulse: 101 Resp: 15 MEDICATION ALLERGIES: No Known Drug Allergies (NKDA) ENVIRONMENTAL ALLERGIES: - Substance Allergies None Known - Other Allergies None Known NURSING: - Shower allowing shower ACTIVITIES OOB only with supervision THERAPIES: - Dietary and Nutrition Adequate Nutrition. Nutritional Education. Nutritional Supplements. - Occupational Therapy Cognitive Retraining. Visual Perceptual Training. - Speech Therapy Cognitive Training. Expressive Language Skills. Memory Strategies. Receptive Language Skills. Speech Intelligibility Training. PHYSICAL EXAM - Gen Alert and awake Lying in bed No apparent distress Oriented to: person, time, and place - Skin No skin breakdown. Normacephalic - Eyes No abnormalities - ENMT No abnormalities - Neck No abnormalities - CVS RRR - Chest Mildly decreased breath sounds bilaterally. - Abd Soft - GI Non distended Deferred - No abnormalities - Ext No significant edema - MSK 4/5 weakness in proximal right upper extremity. - Neuro 4/5 strength right upper extremity - Psych No abnormalities ASSESSMENT: Pt. is a 71 yo Right-handed male.On 02/14/2021 he was admitted to [facility] with diagno sis POST COVID-19, Rotator cuff tear.His impairment category is Pulmonary Disorders 10 - Other Pulmo nary Disorders (10.9).Pre-morbidly, Pt. was independent/mod-I in Locomotion, Safety Awareness, Social Cognition, Balance, and Transfers Control; and he had good Transfers Control, Sphincter Control, Com munication, and Self-Care.Currently, he has deficits of Locomotion, Balance, Transfers Control, Self- Care, and Endurance.Pt. is now referred to [facility] for acute in-patient julissa abilitation in order to maximize patient's functional independence in activities of daily living, str ength, ROM, and mobility.- Rehab Goal Patient has realistic goal of being discharged at assistance level 7-Ind to reside at Home with Fami ly/Relatives. MDM/PLAN: - Physical Therapy Gait dysfunction - to improve, our physical therapists will perform initial evaluation of pt's statu s upon admission and devise an individualized program for Gait Training, and Wheel Chair mobility Inability to transfer - to improve, our physical therapists will perform initial evaluation of pt's status upon admission and devise an individualized program for Bed mobility Need for home safety evaluation - to improve, our physical therapists will perform initial evaluatio n of pt's status upon admission and devise an individualized program for Home Evaluation Need in caregiver upon discharge - to improve, our physical therapists will perform initial evaluati on of pt's status upon admission and devise an individualized program for Caregiver Training New precaution - to improve, our physical therapists will perform initial evaluation of pt's status upon admission and devise an individualized program for Patient precaution education Edema - to improve, our physical therapists will perform initial evaluation of pt's status upon admi ssion and devise an individualized program for Elevation Training, and Lymphedema Therapy Poor balance - to improve, our physical therapists will perform initial evaluation of pt's status up on admission and devise an individualized program for Balance Training Poor endurance - to improve, our physical therapists will perform initial evaluation of pt's status upon admission and devise an individualized program for Endurance Training Weakness - to improve, our physical therapists will perform initial evaluation of pt's status upon a dmission and devise an individualized program for Aquatic Therapy, Neuromuscular Reeducation, and Str engthening Achieving independence - to improve, our physical therapists will perform initial evaluation of pt's status upon admission and devise an individualized program for Community Reintegration Activities - Occupational Therapy ADL deficits - to improve, our occupation therapists will perform initial evaluation of pt's status upon admission and devise an individualized program for Bathing, Bed mobility, Community Reintegratio n, Cooking, Dressing, Eating, Fine Motor Skills, Grooming, Homemaking, Kitchen Mobility, Laundry, Pat ient Education, Safety Awareness, Splinting - Positioning, Transfers(Toilet, Tub, Shower), and Wheel Chair Management Need for medical care evaluation specialist - to improve, our occupation therapists will perform initial evaluation of pt's status upon admission and devise an individualized program for Caregiver Training Weakness - to improve, our occupation therapists will perform initial evaluation of pt's status upon admission and devise an individualized program for Aquatic Therapy, Balance, Endurance, UE ROM, and UE strengthening - Other See attached MAR (Medication Administration Record) - Diet Type Continue Regular - Diet - Liquid Texture Continue Regular - Tube Feed Continue N/A - Diet - Solid Texture Continue Regular - Shower allowing shower FUNCTIONAL STATUS: UPDATED AT WEEKLY TEAM CONFERENCE - Bladder Same accident frequency: 7-Ind - No accidents in the past 7 days - Bowel Same accident frequency: 7-Ind - No accidents in the past 7 days - Walking Same score based on distance walked: 0(N/A) Same score based on distance walked: 1(<=50ft) - Wheelchair Same score based on distance traveled: 0(N/A) FUNCTIONAL STATUS: - Self-Care A. Eating Ind B. Grooming Sea C. Bathing modA D. Dressing - Upper Naila E. Dressing - Lower modA F. Toileting Naila - Sphincter Control G. Bladder control Sea H. Bowel control Sea - Transfers Control I. Bed/Chair/Wheelchair Naila J. Toilet sup K. Tub/Shower modA - Locomotion L. Walk/Wheelchair (B) Sea M. Stairs Sea - Communication N. Comprehension (B) sup O. Expression (B) sup - Social Cognition P. Social Interaction Sea Q. Problem Solving sup R. Memory sup - Endurance Fair - Balance Fair - Safety Awareness Fair QI SCORES: - Self-Care A. Eating 03-Partial/moderate assistance B. Oral hygiene 03-Partial/moderate assistance C. Toileting hygiene 03-Partial/moderate assistance E. Shower/bathe self 03-Partial/moderate assistance F. Upper body dressing 03-Partial/moderate assistance G. Lower body dressing 03-Partial/moderate assistance H. Putting on/taking off footwear 88-Not attempted due to medical condition or safety concerns - Mobility A. Roll left and right 03-Partial/moderate assistance B. Sit to lying 03-Partial/moderate assistance C. Lying to sitting on side of bed 03-Partial/moderate assistance D. Sit to stand 03-Partial/moderate assistance E. Chair/ein-zl-ciovg transfer 03-Partial/moderate assistance F. Toilet transfer 03-Partial/moderate assistance G. Car transfer 88-Not attempted due to medical condition or safety concerns I. Walk 10 feet 03-Partial/moderate assistance J. Walk 50 feet with two turns 88-Not attempted due to medical condition or safety concerns K. Walk 150 feet 88-Not attempted due to medical condition or safety concerns L. Walking 10 feet on uneven surfaces 88-Not attempted due to medical condition or safety concerns M. 1 step (curb) 88-Not attempted due to medical condition or safety concerns N. 4 steps 88-Not attempted due to medical condition or safety concerns O. 12 steps 88-Not attempted due to medical condition or safety concerns P. Picking up object 88-Not attempted due to medical condition or safety concerns R. Wheel 50 feet with two turns 88-Not attempted due to medical condition or safety concerns S. Wheel 150 feet 88-Not attempted due to medical condition or safety concerns - Bladder and Bowel Bladder continence Bowel continence - Endurance Fair - Balance Poor - Safety Awareness Fair [facility] DEFICITS: Self-Care, Mobility, Endurance, Balance, and Safety Awareness SIGNATURE PANEL: (CDT)
[2021-03-07] MEDS: DIVALPROEX DR 250 MG TAB PO SCH (19:30)
[2021-03-07] MEDS: ATORVASTATIN 20 MG TAB PO SCH (19:30)
[2021-03-07] MEDS: MELATONIN 5 MG TABLET PO PRN (19:31)
[2021-03-08] MEDS: METOPROLOL TAR 25 MG TAB PO SCH ×2 (05:02→16:47)
[2021-03-08 07:37] LABS: Albumin 2.5 g/dL (3.4-5.0); BUN Blood Urea Nitrogen 28 mg/dL (7-18); Bicarbonate 30 mmol/L (21-32); Glucose Level 143 mg/dL (74-106); Magnesium 2.1 mg/dL (1.8-2.4); Potassium 4.5 mmol/L (3.5-5.1); Prealbumin 33.3 mg/dL (20-40); Sodium Level 137 mmol/L (136-145)
[2021-03-08] MEDS: DOCUSATE NA 100 MG CAP PO SCH (07:56)
[2021-03-08] MEDS: VITAMIN D 1000 UNIT TAB PO SCH (07:57)
[2021-03-08] MEDS: THIAMINE HCL 100 MG TABLET PO SCH (07:57)
[2021-03-08] MEDS: FAMOTIDINE 20 MG TAB PO SCH ×2 (07:57→19:07)
[2021-03-08] MEDS: predniSONE 20 MG TAB PO SCH ×2 (07:57→19:08)
[2021-03-08] MEDS: ZINC SULFATE 220 MG CAP PO SCH (07:57)
[2021-03-08] MEDS: CRANBERRY FRUIT EXTRACT 200 MG CAP PO SCH ×2 (07:57→19:07)
[2021-03-08] MEDS: ASCORBIC ACID 500 MG TABLET PO SCH ×4 (07:57→19:07)
[2021-03-08] MEDS: ASPIRIN 81 MG CHEWABLE TABLET PO SCH (07:57)
[2021-03-08 08:20] LABS: Absolute Lymphocytes (CBC) 1.1 K/uL (0.7-4.9); Basophils % 0.3 % (0-1.3); Hematocrit 46.1 % (39.6-49.0); Lymphocytes % 10.7 % (15.3-44.8); MPV 8.8 fL (7.6-11.3); RBC Red Blood Cell Count 5.14 M/uL (4.33-5.43)
[2021-03-08 09:39] LABS: Blood Morphology Comment NOT SEEN (NOT SEEN); Platelet Estimate DECR; White Blood Cell Scan OK (OK)
[2021-03-08] MEDS: RIVAROXABAN 10 MG TABLET PO SCH (16:46)
--- NOTE | 2021-03-08 18:24 | R.PN ---
PROGRESS NOTES ENCOUNTER DATE AND TIME: 03/08/2021 18:18 (CDT) NAME SOSA TEMPLETON DATE OF : 1950 DATE OF ADMISSION: 03/01/2021 19:22 (CDT) POST COVID-19, Rotator cuff tearCHIEF COMPLAINT: Post-covid syndrome, debility, rotator cuff tear SUBJECTIVE: Pt denied any depression. Pt denied any Shortness of Breath. He denies significant pain, insomnia, constipation or shortness of breath while on 2-3 L of O2 via na octaviano cannula. Blood work reviewed and is stable. CBC with diff shows mildly mildly low Plt of 74, Ca is mildly low at 8.0. Ambulated 230' with rolling walker and 2 L of O2. Sats dropped to 88% but improved to 94% after O2 wa s increased up to 4 L. VITAL SIGNS Temperature: 97.1 F SBP/DBP: 144/83 Pulse: 56 to 111 Resp: 16 MEDICATION ALLERGIES: No Known Drug Allergies (NKDA) ENVIRONMENTAL ALLERGIES: - Substance Allergies None Known - Other Allergies None Known NURSING: - Shower allowing shower ACTIVITIES OOB only with supervision THERAPIES: - Dietary and Nutrition Adequate Nutrition. Nutritional Education. Nutritional Supplements. - Occupational Therapy Cognitive Retraining. Visual Perceptual Training. - Speech Therapy Cognitive Training. Expressive Language Skills. Memory Strategies. Receptive Language Skills. Speech Intelligibility Training. PHYSICAL EXAM - Gen Alert and awake Lying in bed No apparent distress Oriented to: person, time, and place - Skin No skin breakdown. Normacephalic - Eyes No abnormalities - ENMT No abnormalities - Neck No abnormalities - CVS RRR - Chest Mildly decreased breath sounds bilaterally. - Abd Soft - GI Non distended Deferred - No abnormalities - Ext No significant edema - MSK 4/5 weakness in proximal right upper extremity. - Neuro 4/5 strength right upper extremity - Psych No abnormalities ASSESSMENT: Pt. is a 71 yo Right-handed male.On 02/14/2021 he was admitted to [facility] with diagno sis POST COVID-19, Rotator cuff tear.His impairment category is Pulmonary Disorders 10 - Other Pulmo nary Disorders (10.9).Pre-morbidly, Pt. was independent/mod-I in Locomotion, Safety Awareness, Social Cognition, Balance, and Transfers Control; and he had good Transfers Control, Sphincter Control, Com munication, and Self-Care.Currently, he has deficits of Locomotion, Balance, Transfers Control, Self- Care, and Endurance.Pt. is now referred to [facility] for acute in-patient julissa abilitation in order to maximize patient's functional independence in activities of daily living, str ength, ROM, and mobility.- Rehab Goal Patient has realistic goal of being discharged at assistance level 7-Ind to reside at Home with Fami ly/Relatives. MDM/PLAN: - Physical Therapy Gait dysfunction - to improve, our physical therapists will perform initial evaluation of pt's statu s upon admission and devise an individualized program for Gait Training, and Wheel Chair mobility Inability to transfer - to improve, our physical therapists will perform initial evaluation of pt's status upon admission and devise an individualized program for Bed mobility Need for home safety evaluation - to improve, our physical therapists will perform initial evaluatio n of pt's status upon admission and devise an individualized program for Home Evaluation Need in caregiver upon discharge - to improve, our physical therapists will perform initial evaluati on of pt's status upon admission and devise an individualized program for Caregiver Training New precaution - to improve, our physical therapists will perform initial evaluation of pt's status upon admission and devise an individualized program for Patient precaution education Edema - to improve, our physical therapists will perform initial evaluation of pt's status upon admi ssion and devise an individualized program for Elevation Training, and Lymphedema Therapy Poor balance - to improve, our physical therapists will perform initial evaluation of pt's status up on admission and devise an individualized program for Balance Training Poor endurance - to improve, our physical therapists will perform initial evaluation of pt's status upon admission and devise an individualized program for Endurance Training Weakness - to improve, our physical therapists will perform initial evaluation of pt's status upon a dmission and devise an individualized program for Aquatic Therapy, Neuromuscular Reeducation, and Str engthening Achieving independence - to improve, our physical therapists will perform initial evaluation of pt's status upon admission and devise an individualized program for Community Reintegration Activities - Occupational Therapy ADL deficits - to improve, our occupation therapists will perform initial evaluation of pt's status upon admission and devise an individualized program for Bathing, Bed mobility, Community Reintegratio n, Cooking, Dressing, Eating, Fine Motor Skills, Grooming, Homemaking, Kitchen Mobility, Laundry, Pat ient Education, Safety Awareness, Splinting - Positioning, Transfers(Toilet, Tub, Shower), and Wheel Chair Management Need for home care manager rn - to improve, our occupation therapists will perform initial evaluation of pt's status upon admission and devise an individualized program for Caregiver Training Weakness - to improve, our occupation therapists will perform initial evaluation of pt's status upon admission and devise an individualized program for Aquatic Therapy, Balance, Endurance, UE ROM, and UE strengthening - Other See attached MAR (Medication Administration Record) - Diet Type Continue Regular - Diet - Liquid Texture Continue Regular - Tube Feed Continue N/A - Diet - Solid Texture Continue Regular - Shower allowing shower FUNCTIONAL STATUS: UPDATED AT WEEKLY TEAM CONFERENCE - Bladder Same accident frequency: 7-Ind - No accidents in the past 7 days - Bowel Same accident frequency: 7-Ind - No accidents in the past 7 days - Walking Same score based on distance walked: 0(N/A) Same score based on distance walked: 1(<=50ft) - Wheelchair Same score based on distance traveled: 0(N/A) FUNCTIONAL STATUS: - Self-Care A. Eating Ind B. Grooming Sea C. Bathing modA D. Dressing - Upper Naila E. Dressing - Lower modA F. Toileting Naila - Sphincter Control G. Bladder control Sea H. Bowel control Sea - Transfers Control I. Bed/Chair/Wheelchair Naila J. Toilet sup K. Tub/Shower modA - Locomotion L. Walk/Wheelchair (B) Sea M. Stairs Sea - Communication N. Comprehension (B) sup O. Expression (B) sup - Social Cognition P. Social Interaction Sea Q. Problem Solving sup R. Memory sup - Endurance Fair - Balance Fair - Safety Awareness Fair QI SCORES: - Self-Care A. Eating 03-Partial/moderate assistance B. Oral hygiene 03-Partial/moderate assistance C. Toileting hygiene 03-Partial/moderate assistance E. Shower/bathe self 03-Partial/moderate assistance F. Upper body dressing 03-Partial/moderate assistance G. Lower body dressing 03-Partial/moderate assistance H. Putting on/taking off footwear 88-Not attempted due to medical condition or safety concerns - Mobility A. Roll left and right 03-Partial/moderate assistance B. Sit to lying 03-Partial/moderate assistance C. Lying to sitting on side of bed 03-Partial/moderate assistance D. Sit to stand 03-Partial/moderate assistance E. Chair/[id number] transfer 03-Partial/moderate assistance F. Toilet transfer 03-Partial/moderate assistance G. Car transfer 88-Not attempted due to medical condition or safety concerns I. Walk 10 feet 03-Partial/moderate assistance J. Walk 50 feet with two turns 88-Not attempted due to medical condition or safety concerns K. Walk 150 feet 88-Not attempted due to medical condition or safety concerns L. Walking 10 feet on uneven surfaces 88-Not attempted due to medical condition or safety concerns M. 1 step (curb) 88-Not attempted due to medical condition or safety concerns N. 4 steps 88-Not attempted due to medical condition or safety concerns O. 12 steps 88-Not attempted due to medical condition or safety concerns P. Picking up object 88-Not attempted due to medical condition or safety concerns R. Wheel 50 feet with two turns 88-Not attempted due to medical condition or safety concerns S. Wheel 150 feet 88-Not attempted due to medical condition or safety concerns - Bladder and Bowel Bladder continence Bowel continence - Endurance Fair - Balance Poor - Safety Awareness Fair [facility] DEFICITS: Self-Care, Mobility, Endurance, Balance, and Safety Awareness SIGNATURE PANEL: (CDT)
[2021-03-08] MEDS: ATORVASTATIN 20 MG TAB PO SCH (19:07)
[2021-03-08] MEDS: DIVALPROEX DR 250 MG TAB PO SCH (19:10)
[2021-03-08] MEDS: MELATONIN 5 MG TABLET PO PRN (19:10)
[2021-03-08 20:38] VITALS: BMI 25.7
[2021-03-09] MEDS: METOPROLOL TAR 25 MG TAB PO SCH ×2 (05:22→17:08)
[2021-03-09] MEDS: FAMOTIDINE 20 MG TAB PO SCH ×2 (08:21→20:14)
[2021-03-09] MEDS: VITAMIN D 1000 UNIT TAB PO SCH (08:21)
[2021-03-09] MEDS: THIAMINE HCL 100 MG TABLET PO SCH (08:22)
[2021-03-09] MEDS: ASCORBIC ACID 500 MG TABLET PO SCH ×4 (08:22→20:15)
[2021-03-09] MEDS: CRANBERRY FRUIT EXTRACT 200 MG CAP PO SCH ×2 (08:22→20:13)
[2021-03-09] MEDS: DOCUSATE NA 100 MG CAP PO SCH (08:23)
[2021-03-09] MEDS: ASPIRIN 81 MG CHEWABLE TABLET PO SCH (08:23)
[2021-03-09] MEDS: predniSONE 20 MG TAB PO SCH ×2 (08:23→20:14)
[2021-03-09] MEDS: ZINC SULFATE 220 MG CAP PO SCH (08:23)
--- NOTE | 2021-03-09 10:03 | P.RH.PN ---
Estimated Length of Stay: 12 Expected Discharge Date: 03/12/21 Discharge Disposition Plan: Home Family Support: Yes Half-Way Goal: Mobility, Transfers, Self Care Vital Signs: Last Vital Signs Temp 97.1 F 03/09/21 07:27 Pulse 53 03/09/21 07:27 Resp 18 03/09/21 07:27 BP 112/74 03/09/21 07:27 Pulse Ox 95 03/09/21 07:27 Laboratory: Laboratory Last Values WBC 10.20 K/uL (4.3-10.9) 03/08/21 08:04 RBC 5.14 M/uL (4.33-5.43) 03/08/21 08:04 Hgb 15.5 g/dL (13.6-17.9) 03/08/21 08:04 Hct 46.1 % (39.6-49.0) 03/08/21 08:04 MCV 89.6 fL (80-100) 03/08/21 08:04 MCH 30.2 pg (27.0-35.0) 03/08/21 08:04 MCHC 33.6 g/dL (32.0-36.0) 03/08/21 08:04 RDW 15.2 % (12.1-15.2) 03/08/21 08:04 Plt Count 74 K/uL (152-406) L D 03/08/21 08:04 MPV 8.8 fL (7.6-11.3) 03/08/21 08:04 Neutrophils % 85.3 % (41.7-73.7) H 03/08/21 08:04 Lymphocytes % 10.7 % (15.3-44.8) L 03/08/21 08:04 Monocytes % 3.6 % (3.3-12.3) 03/08/21 08:04 Eosinophils % 0.1 % (0-4.4) 03/08/21 08:04 Basophils % 0.3 % (0-1.3) 03/08/21 08:04 Absolute Neutrophils 8.7 K/uL (1.8-8.0) H 03/08/21 08:04 Absolute Lymphocytes 1.1 K/uL (0.7-4.9) 03/08/21 08:04 Absolute Monocytes 0.4 K/uL (0.1-1.3) 03/08/21 08:04 Absolute Eosinophils 0.0 K/uL (0-0.5) 03/08/21 08:04 Absolute Basophils 0.0 K/uL (0-0.5) 03/08/21 08:04 Platelet Estimate Decr 03/08/21 08:04 Morphology Comment Not seen (NOT SEEN) 03/08/21 08:04 Sodium 137 mmol/L (136-145) 03/08/21 06:35 Potassium 4.5 mmol/L (3.5-5.1) 03/08/21 06:35 Chloride 104 mmol/L (98-107) 03/08/21 06:35 Carbon Dioxide 30 mmol/L (21-32) 03/08/21 06:35 BUN 28 mg/dL (7-18) H 03/08/21 06:35 Creatinine 0.65 mg/dL (0.55-1.3) 03/08/21 06:35 Estimated GFR > 90 mL/min (=/>90) 03/08/21 06:35 Glucose 143 mg/dL (74-106) H 03/08/21 06:35 Calcium 8.0 mg/dL (8.5-10.1) L 03/08/21 06:35 Magnesium 2.1 mg/dL (1.8-2.4) 03/08/21 06:35 Ferritin 3282.3 ng/mL (26-388) H 03/02/21 05:53 Total Bilirubin 1.5 mg/dL (0.2-1.0) H 03/02/21 05:53 AST 17 U/L (15-37) 03/02/21 05:53 ALT 48 U/L (12-78) 03/02/21 05:53 Alkaline Phosphatase 77 U/L (45-117) 03/02/21 05:53 C-Reactive Protein < 2.90 mg/L (<3.00) 03/02/21 05:53 Serum Total Protein 5.7 g/dL (6.4-8.2) L 03/02/21 05:53 Albumin 2.5 g/dL (3.4-5.0) L 03/08/21 06:35 Globulin 3.0 g/dL (2.3-3.5) 03/02/21 05:53 Albumin/Globulin Ratio 0.9 (1.1-1.8) L 03/02/21 05:53 Prealbumin 33.3 mg/dL (20-40) 03/08/21 06:35 Urine Color Yellow (Yellow) 03/01/21 23:50 Urine Appearance Clear (Clear) 03/01/21 23:50 Urine pH 5.5 (5.0-7.0) 03/01/21 23:50 Ur Specific [place] 1.025 (1.005-1.030) 03/01/21 23:50 Glucose (UA)(Auto) Negative (Negative) 03/01/21 23:50 Urine Ketones Negative (Negative) 03/01/21 23:50 Urine Blood Negative (Negative) 03/01/21 23:50 Urine Nitrite Negative (Negative) 03/01/21 23:50 Urine Bilirubin Negative (Negative) 03/01/21 23:50 Urine Urobilinogen 1.0 mg/dL (0.2-1.0) 03/01/21 23:50 Ur Leukocyte Esterase Negative (Negative) 03/01/21 23:50 Urine RBC <5 /HPF (NONE SEEN) 03/01/21 23:50 Urine WBC <5 /HPF (<5) 03/01/21 23:50 Ur Squamous Epith Cells <5 /HPF (NONE SEEN) 03/01/21 23:50 Urine Bacteria 20-50 /HPF (NONE SEEN) H 03/01/21 23:50 Hyaline Casts 0-5 /LPF (NONE SEEN) 03/01/21 23:50 Urine Mucus 2+ /HPF (NONE SEEN) 03/01/21 23:50 Urine Culture Reflexed Not needed 03/01/21 23:50 Urine Total Protein Negative (Negative) 03/01/21 23:50 Smear Scan Ok (OK) 03/08/21 08:04 Weight: 184 lb 8 oz Wound Present: No Closed Surgical Incision Present: No Negative Pressure Wound Therapy Present: No Physician Update: He is making good progress with all therapy. He will require home O2 for discharge. He will have outpatient physical therapy. Walking 500' with standby assistance O2 sat to 88% but recovers well on 3L of O2. Labs reviewed and are stable. Summary: Patient's care plan and terminal system operator goals have been reviewed and revised as necessary. Please see the Rehabilitation Signature page for all necessary signatures.
[2021-03-09] MEDS: RIVAROXABAN 10 MG TABLET PO SCH (17:08)
[2021-03-09] MEDS: DIVALPROEX DR 250 MG TAB PO SCH (20:14)
[2021-03-09] MEDS: ATORVASTATIN 20 MG TAB PO SCH (20:14)
[2021-03-09] MEDS: MELATONIN 5 MG TABLET PO PRN (20:15)
[2021-03-10] MEDS: METOPROLOL TAR 25 MG TAB PO SCH ×2 (05:13→17:24)
[2021-03-10] MEDS: VITAMIN D 1000 UNIT TAB PO SCH (08:15)
[2021-03-10] MEDS: CRANBERRY FRUIT EXTRACT 200 MG CAP PO SCH ×2 (08:16→20:14)
[2021-03-10] MEDS: ASCORBIC ACID 500 MG TABLET PO SCH ×4 (08:16→20:13)
[2021-03-10] MEDS: ASPIRIN 81 MG CHEWABLE TABLET PO SCH (08:16)
[2021-03-10] MEDS: FAMOTIDINE 20 MG TAB PO SCH ×2 (08:16→20:13)
[2021-03-10] MEDS: DOCUSATE NA 100 MG CAP PO SCH (08:16)
[2021-03-10] MEDS: predniSONE 20 MG TAB PO SCH ×2 (08:17→20:13)
[2021-03-10] MEDS: THIAMINE HCL 100 MG TABLET PO SCH (08:17)
[2021-03-10] MEDS: ZINC SULFATE 220 MG CAP PO SCH (08:17)
[2021-03-10] MEDS: RIVAROXABAN 10 MG TABLET PO SCH (17:23)
[2021-03-10] MEDS: DIVALPROEX DR 250 MG TAB PO SCH (20:13)
[2021-03-10] MEDS: ATORVASTATIN 20 MG TAB PO SCH (20:14)
[2021-03-11] MEDS: METOPROLOL TAR 25 MG TAB PO SCH ×2 (05:07→17:18)
[2021-03-11] MEDS: VITAMIN D 1000 UNIT TAB PO SCH (08:40)
[2021-03-11] MEDS: THIAMINE HCL 100 MG TABLET PO SCH (08:40)
[2021-03-11] MEDS: ASCORBIC ACID 500 MG TABLET PO SCH ×4 (08:41→19:49)
[2021-03-11] MEDS: predniSONE 20 MG TAB PO SCH ×2 (08:41→19:49)
[2021-03-11] MEDS: ASPIRIN 81 MG CHEWABLE TABLET PO SCH (08:41)
[2021-03-11] MEDS: ZINC SULFATE 220 MG CAP PO SCH (08:41)
[2021-03-11] MEDS: CRANBERRY FRUIT EXTRACT 200 MG CAP PO SCH ×2 (08:41→19:49)
[2021-03-11] MEDS: FAMOTIDINE 20 MG TAB PO SCH ×2 (08:41→19:49)
[2021-03-11] MEDS: DOCUSATE NA 100 MG CAP PO SCH (08:42)
[2021-03-11] MEDS: RIVAROXABAN 10 MG TABLET PO SCH (17:17)
[2021-03-11] MEDS: ATORVASTATIN 20 MG TAB PO SCH (19:49)
[2021-03-11] MEDS: DIVALPROEX DR 250 MG TAB PO SCH (19:49)
[2021-03-12] MEDS: METOPROLOL TAR 25 MG TAB PO SCH (05:15)
[2021-03-12 07:23] VITALS: BP 139/92; TEMP 97.4
[2021-03-12] MEDS: predniSONE 20 MG TAB PO SCH (07:37)
[2021-03-12] MEDS: ASCORBIC ACID 500 MG TABLET PO SCH ×2 (07:37→14:19)
[2021-03-12] MEDS: ASPIRIN 81 MG CHEWABLE TABLET PO SCH (07:37)
[2021-03-12] MEDS: FAMOTIDINE 20 MG TAB PO SCH (07:37)
[2021-03-12] MEDS: ZINC SULFATE 220 MG CAP PO SCH (07:37)
[2021-03-12] MEDS: THIAMINE HCL 100 MG TABLET PO SCH (07:37)
[2021-03-12] MEDS: CRANBERRY FRUIT EXTRACT 200 MG CAP PO SCH (07:37)
[2021-03-12] MEDS: VITAMIN D 1000 UNIT TAB PO SCH (07:37)
[2021-03-12] MEDS: DOCUSATE NA 100 MG CAP PO SCH (07:38)
[2021-03-12 13:11] VITALS: O2SAT 90
--- NOTE | 2021-03-12 17:21 | R.PN ---
PROGRESS NOTES ENCOUNTER DATE AND TIME: 03/12/2021 17:17 (CDT) NAME SOSA TEMPLETON DATE OF : 1950 DATE OF ADMISSION: 03/01/2021 19:22 (CDT) POST COVID-19, Rotator cuff tearCHIEF COMPLAINT: Post-covid syndrome, debility, rotator cuff tear SUBJECTIVE: Pt denied any depression. Pt denied any Shortness of Breath. He denies significant pain, insomnia, constipation or shortness of breath while on 2-3 L of O2 via na octaviano cannula. Blood work reviewed and is stable. CBC with diff shows mildly mildly low Plt of 74, Ca is mildly low at 8.0. Ambulated 1500' with rolling walker, 2 L of O2 and standby assistance. Sats stayed at 92% with 3L of O2. VITAL SIGNS Temperature: 97.4 F SBP/DBP: 139/92 Pulse: 58 to 95 Resp: 16 MEDICATION ALLERGIES: No Known Drug Allergies (NKDA) ENVIRONMENTAL ALLERGIES: - Substance Allergies None Known - Other Allergies None Known NURSING: - Shower allowing shower ACTIVITIES OOB only with supervision THERAPIES: - Dietary and Nutrition Adequate Nutrition. Nutritional Education. Nutritional Supplements. - Occupational Therapy Cognitive Retraining. Visual Perceptual Training. - Speech Therapy Cognitive Training. Expressive Language Skills. Memory Strategies. Receptive Language Skills. Speech Intelligibility Training. PHYSICAL EXAM - Gen Alert and awake Lying in bed No apparent distress Oriented to: person, time, and place - Skin No skin breakdown. Normacephalic - Eyes No abnormalities - ENMT No abnormalities - Neck No abnormalities - CVS RRR - Chest Mildly decreased breath sounds bilaterally. - Abd Soft - GI Non distended Deferred - No abnormalities - Ext No significant edema - MSK 4/5 weakness in proximal right upper extremity. - Neuro 4/5 strength right upper extremity - Psych No abnormalities ASSESSMENT: Pt. is a 71 yo Right-handed male.On 02/14/2021 he was admitted to [facility] with diagno sis POST COVID-19, Rotator cuff tear.His impairment category is Pulmonary Disorders 10 - Other Pulmo nary Disorders (10.9).Pre-morbidly, Pt. was independent/mod-I in Locomotion, Safety Awareness, Social Cognition, Balance, and Transfers Control; and he had good Transfers Control, Sphincter Control, Com munication, and Self-Care.Currently, he has deficits of Locomotion, Balance, Transfers Control, Self- Care, and Endurance.Pt. is now referred to [facility] for acute in-patient julissa abilitation in order to maximize patient's functional independence in activities of daily living, str ength, ROM, and mobility.- Rehab Goal Patient has realistic goal of being discharged at assistance level 7-Ind to reside at Home with Fami ly/Relatives. MDM/PLAN: - Physical Therapy Gait dysfunction - to improve, our physical therapists will perform initial evaluation of pt's statu s upon admission and devise an individualized program for Gait Training, and Wheel Chair mobility Inability to transfer - to improve, our physical therapists will perform initial evaluation of pt's status upon admission and devise an individualized program for Bed mobility Need for home safety evaluation - to improve, our physical therapists will perform initial evaluatio n of pt's status upon admission and devise an individualized program for Home Evaluation Need in caregiver upon discharge - to improve, our physical therapists will perform initial evaluati on of pt's status upon admission and devise an individualized program for Caregiver Training New precaution - to improve, our physical therapists will perform initial evaluation of pt's status upon admission and devise an individualized program for Patient precaution education Edema - to improve, our physical therapists will perform initial evaluation of pt's status upon admi ssion and devise an individualized program for Elevation Training, and Lymphedema Therapy Poor balance - to improve, our physical therapists will perform initial evaluation of pt's status up on admission and devise an individualized program for Balance Training Poor endurance - to improve, our physical therapists will perform initial evaluation of pt's status upon admission and devise an individualized program for Endurance Training Weakness - to improve, our physical therapists will perform initial evaluation of pt's status upon a dmission and devise an individualized program for Aquatic Therapy, Neuromuscular Reeducation, and Str engthening Achieving independence - to improve, our physical therapists will perform initial evaluation of pt's status upon admission and devise an individualized program for Community Reintegration Activities - Occupational Therapy ADL deficits - to improve, our occupation therapists will perform initial evaluation of pt's status upon admission and devise an individualized program for Bathing, Bed mobility, Community Reintegratio n, Cooking, Dressing, Eating, Fine Motor Skills, Grooming, Homemaking, Kitchen Mobility, Laundry, Pat ient Education, Safety Awareness, Splinting - Positioning, Transfers(Toilet, Tub, Shower), and Wheel Chair Management Need for lawn care technician - to improve, our occupation therapists will perform initial evaluation of pt's status upon admission and devise an individualized program for Caregiver Training Weakness - to improve, our occupation therapists will perform initial evaluation of pt's status upon admission and devise an individualized program for Aquatic Therapy, Balance, Endurance, UE ROM, and UE strengthening - Other See attached MAR (Medication Administration Record) - Diet Type Continue Regular - Diet - Liquid Texture Continue Regular - Tube Feed Continue N/A - Diet - Solid Texture Continue Regular - Shower allowing shower FUNCTIONAL STATUS: UPDATED AT WEEKLY TEAM CONFERENCE - Bladder Same accident frequency: 7-Ind - No accidents in the past 7 days - Bowel Same accident frequency: 7-Ind - No accidents in the past 7 days - Walking Same score based on distance walked: 0(N/A) Same score based on distance walked: 1(<=50ft) - Wheelchair Same score based on distance traveled: 0(N/A) FUNCTIONAL STATUS: - Self-Care A. Eating Ind B. Grooming Sea C. Bathing modA D. Dressing - Upper Naila E. Dressing - Lower modA F. Toileting Naila - Sphincter Control G. Bladder control Sea H. Bowel control Sea - Transfers Control I. Bed/Chair/Wheelchair Naila J. Toilet sup K. Tub/Shower modA - Locomotion L. Walk/Wheelchair (B) Sea M. Stairs Sea - Communication N. Comprehension (B) sup O. Expression (B) sup - Social Cognition P. Social Interaction Sea Q. Problem Solving sup R. Memory sup - Endurance Fair - Balance Fair - Safety Awareness Fair QI SCORES: - Self-Care A. Eating 03-Partial/moderate assistance B. Oral hygiene 03-Partial/moderate assistance C. Toileting hygiene 03-Partial/moderate assistance E. Shower/bathe self 03-Partial/moderate assistance F. Upper body dressing 03-Partial/moderate assistance G. Lower body dressing 03-Partial/moderate assistance H. Putting on/taking off footwear 88-Not attempted due to medical condition or safety concerns - Mobility A. Roll left and right 03-Partial/moderate assistance B. Sit to lying 03-Partial/moderate assistance C. Lying to sitting on side of bed 03-Partial/moderate assistance D. Sit to stand 03-Partial/moderate assistance E. Chair/[id number]-[id number] transfer 03-Partial/moderate assistance F. Toilet transfer 03-Partial/moderate assistance G. Car transfer 88-Not attempted due to medical condition or safety concerns I. Walk 10 feet 03-Partial/moderate assistance J. Walk 50 feet with two turns 88-Not attempted due to medical condition or safety concerns K. Walk 150 feet 88-Not attempted due to medical condition or safety concerns L. Walking 10 feet on uneven surfaces 88-Not attempted due to medical condition or safety concerns M. 1 step (curb) 88-Not attempted due to medical condition or safety concerns N. 4 steps 88-Not attempted due to medical condition or safety concerns O. 12 steps 88-Not attempted due to medical condition or safety concerns P. Picking up object 88-Not attempted due to medical condition or safety concerns R. Wheel 50 feet with two turns 88-Not attempted due to medical condition or safety concerns S. Wheel 150 feet 88-Not attempted due to medical condition or safety concerns - Bladder and Bowel Bladder continence Bowel continence - Endurance Fair - Balance Poor - Safety Awareness Fair [facility] DEFICITS: Self-Care, Mobility, Endurance, Balance, and Safety Awareness SIGNATURE PANEL: (CDT)
== END 2021-03-12 15:30 | disposition home or self-care (01) | DRG 948 ==
LOC: 5TH 19:22
PROVIDERS: ADMIT Psychiatry & Neurology Neurology with Special Qualifications in Child Neurology; ATTEND Psychiatry & Neurology Neurology with Special Qualifications in Child Neurology
DX: R53.81 Other malaise (principal); M75.100 Unspecified rotator cuff tear or rupture of unspecified shoulder, not specified as traumatic; I10 Essential (primary) hypertension; E78.5 Hyperlipidemia, unspecified; Z86.16 Personal history of COVID-19
CPT/HCPCS: 36415; 80048; 80053; 81001; 82040; 82728; 83735; 84134; 85025; 86140; 87086; 87088; 93005; 94010; 97110; 97116; 97161; 97165; 97530; 97542; J7512